=== PATIENT | male | born 1995 | race Asian ===

== ENCOUNTER 2020-01-05 08:34 | Outpatient (CLI) | payer OTHER | END 2020-01-05 22:27 | disposition home or self-care (01) | LOC: CT 08:34 | DX: R10.9 Unspecified abdominal pain (principal) | CPT/HCPCS: 36415; 82565; 84520; Q9963 ==

== ENCOUNTER 2020-06-25 14:48 | Emergency (ER) | payer OTHER ==
[~2020-06-25] VITALS: Ht 167.6 cm; Wt 74.8 kg
[2020-06-25 15:28] LABS: PLATELET COUNT 215 K/uL (142-355)
[2020-06-25 15:32] LABS: POTASSIUM 4.1 mmol/L (3.6-5.2)
[2020-06-25 16:51] VITALS: BP 114/73; TEMP 98.9
== END 2020-06-25 16:55 | disposition home or self-care (01) ==
LOC: ED 14:48
PROVIDERS: Hospitalist
DX: N45.2 Orchitis (principal); N45.1 Epididymitis
CPT/HCPCS: 36415; 80048; 81000; 85027; 85610; 85730; 87040; 96365; 96375; 99284; J0696; J1885; J2405; Q9963

== ENCOUNTER 2021-09-25 14:42 | Outpatient (CLI) | payer OTHER | END 2021-09-25 20:08 | disposition home or self-care (01) | LOC: US 14:42 | PROVIDERS: ATTEND Nurse Practitioner Family | DX: N50.811 Right testicular pain (principal) ==

== ENCOUNTER 2022-11-07 13:19 | Emergency (ER) | payer OTHER ==
[~2022-11-07] VITALS: Ht 167.6 cm; Wt 74.8 kg
[2022-11-07 13:20] VITALS: TEMP 98
[2022-11-07 14:00] LABS: PLATELET COUNT 210 K/uL (142-355)
[2022-11-07 14:04] LABS: POTASSIUM 4.2 mmol/L (3.6-5.2)
[2022-11-07] MEDS ORDERED: CIPRO500 MG PO (15:06)
[2022-11-07 15:20] VITALS: BP 130/74
== END 2022-11-07 15:43 | disposition home or self-care (01) ==
LOC: ED 13:19
PROVIDERS: Emergency Medicine
DX: N13.2 Hydronephrosis with renal and ureteral calculous obstruction (principal); N39.0 Urinary tract infection, site not specified
CPT/HCPCS: 80048; 81000; 85027; 87088; 96360; 96365; 96375; 99283; 99284; J0696; J1885; J2175; J2405

== ENCOUNTER 2023-06-18 19:22 | Emergency (ER) | payer OTHER ==
[~2023-06-18] VITALS: Ht 167.6 cm; Wt 72.7 kg
[~2023-06-18 19:22] MED LIST: CIPRO500 MG PO
[2023-06-18 19:30] VITALS: TEMP 97.5
[2023-06-18 22:55] VITALS: BP 124/60
== END 2023-06-18 22:55 | disposition home or self-care (01) ==
LOC: ED 19:22
DX: S00.01XA Abrasion of scalp, initial encounter (principal); V86.55XA Driver of 3- or 4- wheeled all-terrain vehicle (ATV) injured in nontraffic accident, initial encounter
CPT/HCPCS: 96374; 96376; 99283; 99284; J2270

== ENCOUNTER 2023-06-19 16:47 | Emergency (ER) | payer OTHER ==
[~2023-06-19] VITALS: Ht 167.6 cm; Wt 70.3 kg
[2023-06-19 16:50] VITALS: TEMP 98.1
[2023-06-19 17:35] LABS: PLATELET COUNT 178 K/uL (142-355)
[2023-06-19 17:38] LABS: POTASSIUM 3.8 mmol/L (3.6-5.2)
[2023-06-19 20:30] VITALS: BP 118/76
== END 2023-06-19 21:46 | disposition still patient (30) ==
LOC: ED 16:47
PROVIDERS: Family Medicine
DX: R07.81 Pleurodynia (principal); R10.32 Left lower quadrant pain; V86.95XA Unspecified occupant of 3- or 4- wheeled all-terrain vehicle (ATV) injured in nontraffic accident, initial encounter
CPT/HCPCS: 80053; 81002; 85027; 96374; 96375; 99284; J2270; J2405